=== PATIENT | male | born 1990 | race Caucasian/White ===

== ENCOUNTER 2024-11-11 23:47 | Inpatient (IN) | payer OTHER, SELFPAY ==
[2024-11-11 14:41] VITALS: BP 134/79
--- NOTE | 2024-11-11 14:41 | ED.GENMED ---
ED Provider Triage
-
Patient seen by provider in Triage?: Seen in Triage
34-year-old male, history of asthma, usually gets bronchitis yearly, presents for cough for past 3 weeks, had a sinus infection and bronchitis, took a Z-Adam last dose was 5 days ago., Has been on steroid taper since 3 days ago. Has been using 3
times daily a steroid inhaler and an albuterol inhaler and nothing seems to be helping his cough. Taking Tessalon Perles with brief episodes of relief. Denies fever.
History of Present Illness
General
Chief Complaint: Breathing Problem
Time Seen by Provider: 11/11/24 17:07
History of Present Illness
History of Present Illness:
..
Phy Exam
Physical Exam
Physical Exam:
..
Course
Orders/Labs/Results
Orders:
Orders
11/11/24 14:43
CR Chest - 2 Views Urgent
Comment:
Reason For Exam: persistent cough
11/11/24 14:46
Ipratropium/Albuterol Sulfate [Duoneb] 3 ml INH R NOW STA
11/11/24 16:57
Ipratropium/Albuterol Sulfate [Duoneb] 3 ml .ROUTE .STK-MED ONE
11/11/24 17:22
Albuterol Sulfate [Ventolin Nebules] 7.5 mg INH R NOW STA
Ipratropium Nebs [Atrovent Nebules] 1 mg INH R NOW STA
11/11/24 17:23
Dexamethasone Pf [Decadron] 10 mg PO NOW STA
11/11/24 19:23
IV Insert/Care/Rem.- Treatment PRN
11/11/24 19:24
Electrocardiogram (*1) Stat
Reason for Study: Other
Other Reason for Exam: chest pain
CT Chest PE Study Urgent
Comment:
Reason For Exam: sob
Cardiac Monitoring- Treatment ONCE
EKG- Treatment ONCE
11/11/24 19:35
Complete Blood Count/With Diff Urgent
Comprehensive Metabolic Panel Urgent
Ketorolac [Toradol] 15 mg IV NOW STA
11/11/24 22:04
COVID-19 Antigen Urgent
Source: Nasal Swab
Influenza A+B Rapid Molecular Urgent
RACHELLE Source: Nasal Swab
Specimen Description:
11/11/24 22:50
Ipratropium/Albuterol Sulfate [Duoneb] 3 ml INH R NOW STA
11/11/24 23:14
Admit/Transfer Patient As Directed
Co-Sign Provider:
Level of Care: Inpatient admission
Assign to:: Medical/Surgical
Physician / Group: shahab
Diagnosis: asthma exacerbation/influenza
Reason for Hospitalization: asthma exacerbation/influenza
Expected length of stay greater than two midnights?: Yes
ELOS- Estimated Length of Stay in days: 2
I certify the patient meets the requirements for IP care: Yes
PRN Pain Medication Management As Directed
May give lesser potent ordered pain med per pt: Yes
preference::
Protocol:: Medication orders for pain may be administered in a
manner that supports deferring to patient preference
when the pt is:
- Requesting an ordered lesser potent pain medication.
Least to most potent pain medications are defined
as: acetaminophen < NSAID < tramadol < opioids
(morphine, oxycodone, hydromorphone).
- Requesting a lesser dose of the same medication IF
ORDERED.
- Requesting a less intrusive route of administration
if both routes are prescribed by the provider (PO <
IV).
11/11/24 23:15
Code Status As Directed
Resuscitation Status: Full Code
11/12/24 00:55
Acetaminophen [Tylenol] 650 mg PO Q4HPRN PRN
Benzonatate [Tessalon Perles] 100 mg PO TIDPRN PRN
promethazine-DM 5 ml PO Q6HPRN PRN
11/12/24 00:55
Activity As Directed
Activity Level: As Tolerated
Vital Signs As Directed
Frequency: Per unit guidelines
DX Deep Vein Thrombosis Video Routine
11/12/24 02:00
Dexamethasone Sod Phosphate [Decadron] 4 mg IV Q12H
11/12/24 05:28
Complete Blood Count/With Diff IN AM
Comprehensive Metabolic Panel IN AM
11/12/24 08:00
Budesonide/Formoterol 80/4.5 [Symbicort 80/4.5 Mcg Inhaler] 2 puff INH R BID
Escitalopram Oxalate [Lexapro] 10 mg PO DAILY
Heparin 5,000 units SC Q12
Ipratropium/Albuterol Sulfate [Duoneb] 3 ml INH R QID
Pantoprazole [Protonix] 40 mg PO DAILY
11/12/24 Dinner
Regular
At Your Request: Full Participation
11/12/24 22:00
Famotidine [Pepcid] 20 mg PO HS
Abnormal Lab Results
11/11/24
19:35
WBC 17.0 H 10^3/uL
(4.8-10.8)
Abs Immat Gran (auto) 0.1 H 10^3/uL
(0-0.05)
Absolute Neuts (auto) 15.9 H 10^3/uL
(1.4-6.5)
Absolute Lymphs (auto) 0.4 L 10^3/uL
(1.2-3.4)
Neutrophils % 93.2 H %
(42.2-75.2)
Lymphocytes % 2.6 L %
(20.5-51.1)
Carbon Dioxide 19 L mmol/L
(22-30)
Glucose 159 H mg/dl
(70-99)
11/11/24 19:35
11/11/24 19:35
Vital Signs
Initial and Last Documented VS:
Initial Vital Signs
Temp Pulse Resp BP Pulse Ox
98 F 111 20 134/79 99
11/11/24 14:41 11/11/24 14:41 11/11/24 14:41 11/11/24 14:41 11/11/24 14:41
Last Documented Vital Signs
Temp Pulse Resp BP Pulse Ox
98 F 92 18 154/99 96
11/14/24 15:46 11/14/24 15:46 11/14/24 15:46 11/14/24 15:46 11/14/24 16:03
*Critical Care Note
Total Time (30-74mins, 75-104mins- exclusive of procedures): Not Applicable
ED Attending Note
-
Portions of this chart may have been created with voice recognition software.� Occasional wrong word or��sound alike� substitutions may have occurred due to the inherent limitations of voice recognition software.
Discharge Plan
Departure
Patient Disposition: Admit
Date of Disposition: 11/11/24
Time of Disposition: 22:58
Admit to: Med/Surg
Admit to doctor: hospitalist
Presentation/result/management discussed w/ accepting MD/DO: Hospitalist
Patient with high blood pressure during this ER visit?: Yes
Condition: Fair
Covid-19: Not Applicable
Discharge Problem:
Asthma exacerbation, Influenza A, Acute dyspnea
Interventions
Interventions:
*Risk Screen - Suicide Last Done: 11/11/24 17:21
*General Assessment Last Done: 11/11/24 17:21
*Neglect/Abuse Screening Last Done: 11/11/24 17:21
ED- Fall Risk Assessment Last Done: 11/11/24 17:21
*ED COVID-19 Vaccine History Last Done: 11/11/24 17:21
*Nursing Disposition Last Done: 11/12/24 19:28
ED- Cardiac Assessment Last Done: 11/11/24 17:33
ED- Pulmonary Assessment Last Done: 11/11/24 18:57
Discharge Date and Time
Discharge Date/Time: 11/12/24 19:29
[2024-11-11] MEDS: DUONEB 3 ML INH ×2 (17:00→22:59)
--- NOTE | 2024-11-11 17:20 | EDRN ---
Juan Peters NP in room w/ pt.
--- NOTE | 2024-11-11 17:24 | EDRN ---
Pt w/ hx of asthma and 2 weeks of off and on SOB. Worse last three days, SOB and coughing. On steriods past 2 days.
--- NOTE | 2024-11-11 17:24 | ED.GENMED ---
History of Present Illness
<SHAY Good - Last Filed: 11/11/24 23:00>
General
Chief Complaint: Breathing Problem
Source: patient
Exam Limitations: none
Time Seen by Provider: 11/11/24 17:07
Nursing documentation reviewed up to this point in time: agreed with
History of Present Illness
History of Present Illness:
Patient is a 34-year-old male with past medical history of asthma presents for persistent cough for the past several weeks. Patient was on antibiotics and is on steroids. Patient is also on Tessalon he took 20 mg of regular prednisone and 12 mg of
methylprednisone today. He has been using his inhalers and Symbicort. He complains of persistent cough.
Review of Systems
<SHAY Good - Last Filed: 11/11/24 23:00>
Review of Systems
Allergies reviewed?: Yes
All Other Systems: ROS reviewed and negative except as documented in HPI and ROS
Constitutional: Denies fever
Respiratory: Reports cough
ABD/GI: Reports no symptoms
: Reports no symptoms
Musculoskeletal: Reports no symptoms
Skin: Reports no symptoms
Neurological: Reports no symptoms
Psychiatric: Reports no symptoms
Phy Exam
<SHAY Good - Last Filed: 11/11/24 23:00>
General Physical Exam
General Presentation: no apparent distress
General age: appears stated age
General Skin: warm and dry
General Habitus: normal
General Mental: alert
General Hydration: appears well hydrated
Cardiovascular Exam
Cardiovascular Exam: no murmur, normal peripheral pulses and tachycardia
Pulmonary Exam
Pulmonary Exam: no respiratory distress and other (+ persistent cough + exp wheezing , tachypneic)
Neurological Exam
Neurological Exam: alert and oriented x3
Musculoskeletal Exam
Musculoskeletal Exam: full ROM
Skin Exam
Skin Exam: normal color and warm/dry
Psychiatric Exam
Psychiatric Exam: normal mood/affect
Course
<SHAY Good - Last Filed: 11/11/24 23:00>
Orders/Labs/Results
Orders:
Orders
11/11/24 14:43
CR Chest - 2 Views Urgent
Comment:
Reason For Exam: persistent cough
11/11/24 14:46
Ipratropium/Albuterol Sulfate [Duoneb] 3 ml INH R NOW STA
11/11/24 16:57
Ipratropium/Albuterol Sulfate [Duoneb] 3 ml .ROUTE .STK-MED ONE
11/11/24 17:22
Albuterol Sulfate [Ventolin Nebules] 7.5 mg INH R NOW STA
Ipratropium Nebs [Atrovent Nebules] 1 mg INH R NOW STA
11/11/24 17:23
Dexamethasone Pf [Decadron] 10 mg PO NOW STA
11/11/24 19:23
IV Insert/Care/Rem.- Treatment PRN
11/11/24 19:24
Electrocardiogram (*1) Stat
Reason for Study: Other
Other Reason for Exam: chest pain
CT Chest PE Study Urgent
Comment:
Reason For Exam: sob
Cardiac Monitoring- Treatment ONCE
EKG- Treatment ONCE
11/11/24 19:35
Complete Blood Count/With Diff Urgent
Comprehensive Metabolic Panel Urgent
Ketorolac [Toradol] 15 mg IV NOW STA
11/11/24 22:04
COVID-19 Antigen Urgent
Source: Nasal Swab
Influenza A+B Rapid Molecular Urgent
RACHELLE Source: Nasal Swab
Specimen Description:
11/11/24 22:50
Ipratropium/Albuterol Sulfate [Duoneb] 3 ml INH R NOW STA
Abnormal Lab Results
11/11/24
19:35
WBC 17.0 H 10^3/uL
(4.8-10.8)
Abs Immat Gran (auto) 0.1 H 10^3/uL
(0-0.05)
Absolute Neuts (auto) 15.9 H 10^3/uL
(1.4-6.5)
Absolute Lymphs (auto) 0.4 L 10^3/uL
(1.2-3.4)
Neutrophils % 93.2 H %
(42.2-75.2)
Lymphocytes % 2.6 L %
(20.5-51.1)
Carbon Dioxide 19 L mmol/L
(22-30)
Glucose 159 H mg/dl
(70-99)
11/11/24 19:35
11/11/24 19:35
Vital Signs
Initial and Last Documented VS:
Initial Vital Signs
Temp Pulse Resp BP Pulse Ox
98 F 111 20 134/79 99
11/11/24 14:41 11/11/24 14:41 11/11/24 14:41 11/11/24 14:41 11/11/24 14:41
Last Documented Vital Signs
Temp Pulse Resp BP Pulse Ox
98 F 96 20 135/93 97
11/11/24 14:41 11/11/24 22:42 11/11/24 22:42 11/11/24 21:17 11/11/24 22:42
District Plant Supervisor consulted with Physician
District Plant Supervisor consulted with physician?: Yes
Name of Physician Consulted: Trey
<Sara Yang MD - Last Filed: 11/11/24 17:40>
Orders/Labs/Results
Orders:
Orders
11/11/24 14:43
CR Chest - 2 Views Urgent
Comment:
Reason For Exam: persistent cough
11/11/24 14:46
Ipratropium/Albuterol Sulfate [Duoneb] 3 ml INH R NOW STA
11/11/24 16:57
Ipratropium/Albuterol Sulfate [Duoneb] 3 ml .ROUTE .STK-MED ONE
11/11/24 17:22
Albuterol Sulfate [Ventolin Nebules] 7.5 mg INH R NOW STA
Ipratropium Nebs [Atrovent Nebules] 1 mg INH R NOW STA
11/11/24 17:23
Dexamethasone Pf [Decadron] 10 mg PO NOW STA
11/11/24 19:23
IV Insert/Care/Rem.- Treatment PRN
11/11/24 19:24
Electrocardiogram (*1) Stat
Reason for Study: Other
Other Reason for Exam: chest pain
CT Chest PE Study Urgent
Comment:
Reason For Exam: sob
Cardiac Monitoring- Treatment ONCE
EKG- Treatment ONCE
11/11/24 19:35
Complete Blood Count/With Diff Urgent
Comprehensive Metabolic Panel Urgent
Ketorolac [Toradol] 15 mg IV NOW STA
11/11/24 22:04
COVID-19 Antigen Urgent
Source: Nasal Swab
Influenza A+B Rapid Molecular Urgent
RACHELLE Source: Nasal Swab
Specimen Description:
11/11/24 22:50
Ipratropium/Albuterol Sulfate [Duoneb] 3 ml INH R NOW STA
Abnormal Lab Results
11/11/24
19:35
WBC 17.0 H 10^3/uL
(4.8-10.8)
Abs Immat Gran (auto) 0.1 H 10^3/uL
(0-0.05)
Absolute Neuts (auto) 15.9 H 10^3/uL
(1.4-6.5)
Absolute Lymphs (auto) 0.4 L 10^3/uL
(1.2-3.4)
Neutrophils % 93.2 H %
(42.2-75.2)
Lymphocytes % 2.6 L %
(20.5-51.1)
Carbon Dioxide 19 L mmol/L
(22-30)
Glucose 159 H mg/dl
(70-99)
11/11/24 19:35
11/11/24 19:35
Vital Signs
Initial and Last Documented VS:
Initial Vital Signs
Temp Pulse Resp BP Pulse Ox
98 F 111 20 134/79 99
11/11/24 14:41 11/11/24 14:41 11/11/24 14:41 11/11/24 14:41 11/11/24 14:41
Last Documented Vital Signs
Temp Pulse Resp BP Pulse Ox
98 F 96 20 135/93 97
11/11/24 14:41 11/11/24 22:42 11/11/24 22:42 11/11/24 21:17 11/11/24 22:42
<SHAY Good - Last Filed: 11/11/24 23:00>
MDM/Problems Addressed
Differential Diagnosis Includes:
not limited to:asthma exacerbation, pneumonia, PE, bronchitis, flu, COVID
MDM/Problems Addressed:
As documented patient is a 34-year-old male with cough induced exercise-induced asthma who presents with continued cough and shortness of breath. Patient completed antibiotics and has been on steroids however no relief. Patient presents with
frequent cough very mild wheezing. Patient was given initial neb and then after my evaluation was given an hour-long neb and oral Decadron. Patient continues with coughing fits feels very short of breath he has tachycardic however nonhypoxic.
Patient was evaluated ED physician, will check ct scan /labs .
Labs reviewed patient's white count is elevated 17,000 however he has been on steroid. CAT scan negative for PE no obvious pneumonia. FLU positive
Patient reexamined several times and still complains of feeling short of breath and has conversational dyspnea. Patient has been here and has had several treatments and Decadron however persistently short of breath pulse ox is stable however.
Patient will require [id number] nebs steroids and close monitoring. Will admit patient to the hospital service.
<SHAY Good - Last Filed: 11/11/24 23:00>
*Radiology
Radiology exam reviewed: radiology read reviewed
*Pulse Oximetry
Patient hypoxic: no
*EKG
Interpreted by ED Provider?: Yes
Comparison EKG: no changes
Heart Rate: 113
*Critical Care Note
Total Time (30-74mins, 75-104mins- exclusive of procedures): Not Applicable
ED Attending Note
<SHAY Good - Last Filed: 11/11/24 23:00>
-
Portions of this chart may have been created with voice recognition software.� Occasional wrong word or��sound alike� substitutions may have occurred due to the inherent limitations of voice recognition software.
<Sara Yang MD - Last Filed: 11/11/24 17:40>
ED Attending Note
Patient seen and examined by attending physician: Yes
I performed the substantive portion of visit, reviewed & personally made and approve the management plan that is documented in note by myself or JULIANA.: Yes
ED Attending Note:
34-year-old male with a history of asthma which he says manifested as both wheezing and coughing, recently treated for sinusitis, then bronchitis, returns with recurrent cough that is nonproductive. He is tapering down on steroids, and using his
inhaler. On exam, patient is awake alert comfortable without respiratory distress. I suspect his tachycardia, mild, is related to his recent inhaler use. No identifiable PE risk factors noted. On exam, no retractions, speaks in full sentences
easily. He has diffuse wheezing with obvious cough. Doubt pneumonia, doubt PE particularly without leg swelling, etc. etc. and history. Symptoms very consistent with patient's prior episodes of asthma. Will give hour-long neb treatment here,
longer taper of steroids, close follow-up.
Discharge Plan
Departure
Patient Disposition: Admit
Date of Disposition: 11/11/24
Time of Disposition: 22:58
Admit to: Med/Surg
Admit to doctor: hospitalist
Presentation/result/management discussed w/ accepting MD/DO: Hospitalist
Patient with high blood pressure during this ER visit?: Yes
Condition: Fair
Covid-19: Not Applicable
Discharge Problem:
Asthma exacerbation, Influenza A, Acute dyspnea
Prescriptions:
No Action
Leelee
1 tab PO TID
propranolol 10 mg Tablet
10 mg PO PRN PRN (Reason: htn rel to anxiety )
famotidine 20 mg Tablet
20 mg PO HS
omeprazole [Prilosec] 20 mg Capsule,Delayed Release(Dr/Ec)
20 mg PO DAILY
escitalopram oxalate 10 mg Tablet
10 mg PO DAILY
Referrals:
Juan Daniel Douglas IV, MD [Family Provider] -
Interventions
Interventions:
*Risk Screen - Suicide Last Done: 11/11/24 17:21
*General Assessment Last Done: 11/11/24 17:21
*Neglect/Abuse Screening Last Done: 11/11/24 17:21
ED- Fall Risk Assessment Last Done: 11/11/24 17:21
*ED COVID-19 Vaccine History Last Done: 11/11/24 17:21
ED- Cardiac Assessment Last Done: 11/11/24 17:33
ED- Pulmonary Assessment Last Done: 11/11/24 18:57
Discharge Date and Time
Print Language: GREENLANDIC
[2024-11-11 17:32] VITALS: BP 166/82
[2024-11-11] MEDS: VENTOLIN NEBULES 7.5 MG INH (17:34)
[2024-11-11] MEDS: ATROVENT NEBULES 1 MG INH (17:34)
[2024-11-11] MEDS: DECADRON 10 MG PO (17:34)
[2024-11-11 17:40] VITALS: BMI 34.9
--- NOTE | 2024-11-11 18:28 | EDRN ---
Pt states he is feeling more relaxed and breathing more easily w/ coughing greatly decreased. 1 hour neb continuing. Pt states he is still feeling tight though.
[2024-11-11 19:22] VITALS: BP 162/88
[2024-11-11 19:46] LABS: % Basophils 0.2 % (0-2); % Immature Granulocytes 0.5 % (0-0.5); % Lymphocytes 2.6 % (20.5-51.1); % Monocytes 3.5 % (1.7-9.3); % Neutrophils 93.2 % (42.2-75.2); Absolute Immature Granulocytes 0.1 10^3/uL (0-0.05); Absolute Lymphocytes 0.4 10^3/uL (1.2-3.4); Absolute Monocytes 0.6 10^3/uL (0.1-0.6); Absolute Neutrophils 15.9 10^3/uL (1.4-6.5); Hematocrit 42.1 % (39.0-52.0); Hemoglobin 14.7 g/dL (13.0-18.0); Mean Corp Hgb Conc. 34.9 g/dL (33.0-37.0); Mean Corpuscular Hgb 30.4 pg (27.0-31.0); Mean Platelet Volume 9.9 fL (7.4-10.4); Nucleated Red Blood Cells % 0 % (-); Platelet Count 240 10^3/uL (130-400); Red Blood Cell Count 4.84 10^6/uL (4.70-6.10); Red Cell Dist. Width 12.7 % (11.5-14.5)
[2024-11-11] MEDS: TORADOL 15 MG IV (19:54)
[2024-11-11 20:09] LABS: AST (SGOT) 35 U/L (17-59); Albumin 4.8 g/dl (3.5-5.0); Alkaline Phosphatase 108 U/L (38-126); Blood Urea Nitrogen 11 mg/dl (9-20); Calcium 9.4 mg/dl (8.4-10.2); Carbon Dioxide 19 mmol/L (22-30); Chloride 101 mmol/L (98-107); Estimated Creatinine Clearance > 125 ml/min; Glucose 159 mg/dl (70-99); Potassium 3.7 mmol/L (3.5-5.1); Sodium 136 mmol/L (135-145); Total Bilirubin 0.6 mg/dl (0.2-1.3); Total Protein 7.4 g/dl (6.3-8.2); eGFR > 60.00
[2024-11-11 20:18] LABS: ALT (SGPT) 31 U/L (0-50)
[2024-11-11 21:17] VITALS: BP 135/93
--- NOTE | 2024-11-11 22:09 | EDRN ---
ambulatory pulse ox 96%
[2024-11-11 22:33] LABS: COVID-19 Antigen Negative (Negative)
--- NOTE | 2024-11-11 23:18 | HPS.HSE ---
Family Physician
-
Family Physician: Juan Daniel Douglas IV, MD
Chief Complaint
-
cough
History of Present Illness
34-year-old male past medical history of exercise-induced asthma, hypertension, angioedema, anxiety/depression presenting with persisting productive cough for the past 2 weeks. He was having bodyaches, shortness of breath, and sore throat. No
fevers or chills. No nausea vomiting or diarrhea. No chest pain.
He saw his primary care physician and completed course of antibiotics last week. He is on day 2 of oral steroids.
He does vape a few times a month. He drinks alcohol occasionally.
Medical History
Past Medical History
Past Medical History: Reports Other (exercise-induced asthma, hypertension, angioedema, anxiety/depression)
Past Surgical History: Reports Other (wisdom teeth )
Social History
Tobacco: Vaping
Alcohol: None
Drug: None
Family History
Family History: Not pertinent
Allergies / Home Medications
Allergies reflects when Allergies were last updated in [facility].
Home Medications with original date entered in [facility]
Allergy/Medication List:
Allergies
Allergy/AdvReac Type Severity Reaction Status Date / Time
No Known Allergies Allergy Unverified 11/16/23 08:08
Home Medications
escitalopram oxalate 10 mg tablet 10 mg PO DAILY 11/16/23
famotidine 20 mg tablet 20 mg PO HS 11/16/23
fexofenadine 180 mg tablet 180 mg PO NOON 11/16/23
propranolol 10 mg tablet 10 mg PO DAILYPRN PRN htn rel to anxiety 11/16/23
albuterol sulfate 90 mcg/actuation aerosol inhaler 2 puff inhalation R Q4HPRN PRN sob 11/11/24
benzonatate 100 mg capsule 100 mg PO TIDPRN PRN cough 11/11/24
budesonide-formoterol HFA 80 mcg-4.5 mcg/actuation aerosol inhaler (Symbicort) 2 puff inhalation R BID 11/11/24
methylprednisolone 4 mg tablets in a dose pack 0 mg PO PER PKG DIR 11/11/24
pantoprazole 40 mg tablet,delayed release 40 mg PO DAILY 11/11/24
promethazine-DM 6.25 mg-15 mg/5 mL oral syrup 5 ml PO Q6HPRN PRN cough 11/11/24
Review of Systems
-
History Source: Patient
A 12 point ROS was completed and negative except as noted: Yes
Constitutional: Reports No Symptoms
EENT: Reports No Symptoms
Respiratory: Reports See HPI
Cardiac: Reports No Symptoms
Abdomen/GI: Reports No Symptoms
: Reports No Symptoms
Musculoskeletal: Reports No Symptoms
Skin: Reports No Symptoms
Neurological: Reports No Symptoms
Endocrine: Reports No Symptoms
Hematologic/Lymphatic: Reports No Symptoms
Psych: Reports No Symptoms
Physical Exam
Vital Signs
Vital Signs
Temp Pulse Resp BP Pulse Ox
98 F 96 20 135/93 97
11/11/24 14:41 11/11/24 22:42 11/11/24 22:42 11/11/24 21:17 11/11/24 22:42
Physical Exam
General: Well Developed, Well Nourished and No Apparent Distress
HEENT: NormoCephalic, Moist mucous membranes and Atraumatic
Respiratory: Wheezes
Cardiac: S1/S2 and Regular Rhythm; No Murmur or Rub
GI: Soft, Non Tender, Non Distended and Normal Bowel Sounds; No Organomegaly
Rectal: Deferred by Provider
Musculoskeletal: No Clubbing, No Cyanosis and No Edema
Skin: No Rash
Neuro: Nonfocal/grossly intact
Laboratory Results
-
11/11/24 19:35
11/11/24 19:35
Laboratory Results
Total Bilirubin 0.6 mg/dl (0.2-1.3) 11/11/24 19:35
AST 35 U/L (17-59) 11/11/24 19:35
ALT 31 U/L (0-50) 11/11/24 19:35
Alkaline Phosphatase 108 U/L (38-126) 11/11/24 19:35
Data Reviewed
-
Lab Data: Labs Reviewed by me
Old Records: Reviewed
Impression/Plan
-
IMPRESSION:
PLAN:
# Acute bronchitis/influenza infection
# History of exercise-induced asthma
-Influenza A positive
-CT PE shows no pulmonary embolism
-DuoNebs every 6 hours
-Dexamethasone 4 mg every 12
-Out of window for Tamiflu
-Tessalon Perles
-Continue Symbicort
History of angioedema
-Continue famotidine
Essential hypertension
GERD
-Continue famotidine
-Continue Protonix
Anxiety/depression
Occasional vaper
Full code
DVT prophylaxis-heparin
Regular diet
[2024-11-11 23:47] VITALS: BMI 34.9
[2024-11-12] VITALS (11 sets, daily range): BP systolic 118–160; BP diastolic 74–98; BMI 33.1
[2024-11-12] MEDS: DECADRON 4 MG IV (01:23)
[2024-11-12] MEDS: TESSALON PERLES 100 MG PO ×2 (01:23→07:56)
[2024-11-12 05:47] LABS: % Basophils 0.1 % (0-2); % Immature Granulocytes 0.4 % (0-0.5); % Lymphocytes 3.1 % (20.5-51.1); % Monocytes 3.8 % (1.7-9.3); % Neutrophils 92.6 % (42.2-75.2); Absolute Immature Granulocytes 0.1 10^3/uL (0-0.05); Absolute Lymphocytes 0.5 10^3/uL (1.2-3.4); Absolute Monocytes 0.6 10^3/uL (0.1-0.6); Absolute Neutrophils 14.4 10^3/uL (1.4-6.5); Hematocrit 41.6 % (39.0-52.0); Hemoglobin 14.2 g/dL (13.0-18.0); Mean Corp Hgb Conc. 34.1 g/dL (33.0-37.0); Mean Corpuscular Hgb 30.3 pg (27.0-31.0); Mean Corpuscular Volume 88.9 fL (80.0-94.0); Nucleated Red Blood Cells % 0 % (-); Platelet Count 242 10^3/uL (130-400); Red Blood Cell Count 4.68 10^6/uL (4.70-6.10); White Blood Cell Count 15.5 10^3/uL (4.8-10.8)
[2024-11-12 06:09] LABS: ALT (SGPT) 21 U/L (0-50); AST (SGOT) 25 U/L (17-59); Albumin 4.4 g/dl (3.5-5.0); Alkaline Phosphatase 106 U/L (38-126); Blood Urea Nitrogen 11 mg/dl (9-20); Calcium 9.4 mg/dl (8.4-10.2); Carbon Dioxide 23 mmol/L (22-30); Chloride 102 mmol/L (98-107); Estimated Creatinine Clearance > 125 ml/min; Glucose 124 mg/dl (70-99); Potassium 4.2 mmol/L (3.5-5.1); Sodium 137 mmol/L (135-145); Total Bilirubin 0.5 mg/dl (0.2-1.3); Total Protein 6.8 g/dl (6.3-8.2); eGFR > 60.00
[2024-11-12] MEDS: HEPARIN 5000 UNITS SC ×2 (07:56→20:13)
[2024-11-12] MEDS: PROTONIX 40 MG PO (07:56)
[2024-11-12] MEDS: LEXAPRO 10 MG PO (07:56)
[2024-11-12] MEDS: TYLENOL 650 MG PO ×3 (07:56→22:45)
[2024-11-12] MEDS: SOLU-MEDROL PF 40 MG IV ×2 (07:58→17:55)
[2024-11-12] MEDS: DUONEB 3 ML INH ×4 (08:24→19:51)
[2024-11-12] MEDS: SYMBICORT 80/4.5 MCG INHALER 2 PUFF INH ×2 (08:24→19:51)
--- NOTE | 2024-11-12 09:21 | W.PN.HOSP.TC ---
Today's Communication/Plan
-
Continue with IV steroid
Start Tamiflu
Follow-up with pulmonary recommendation
Assessment / Plan
Assessment / Plan
Physical Exam
General: Well Developed, Well Nourished and No Apparent Distress
HEENT: NormoCephalic, Moist mucous membranes and Atraumatic
Respiratory: Wheezes
Cardiac: S1/S2 and Regular Rhythm; No Murmur or Rub
GI: Soft, Non Tender, Non Distended and Normal Bowel Sounds; No Organomegaly
Rectal: Deferred by Provider
Musculoskeletal: No Clubbing, No Cyanosis and No Edema
Skin: No Rash
Neuro: Nonfocal/grossly intact
# Acute bronchitis/influenza infection
# History of exercise-induced asthma
-Influenza A positive despite vaccinated
-CT PE shows no pulmonary embolism
-DuoNebs every 6 hours
-Methylprednisolone 40 mg twice daily
-Initial thought it was Out of window for Tamiflu, patient recalled his close symptoms started 2 days ago. Will start Tamiflu 75 mg twice daily
-Tessalon Perles
-Continue Symbicort
-Consult pulmonary, appreciate help
# Leukocytosis, no fever, suspect will persist due to steroid therapy
History of angioedema
-Continue famotidine
Essential hypertension
GERD
-Continue famotidine
-Continue Protonix
Anxiety/depression
Occasional vaper
Full code
DVT prophylaxis-heparin
Regular diet
Total time spent to see the patient, examine the patient, review data and lab results, discuss treatment plan with patient and nursing staff around 55 minutes
Anticipated Discharge: > 48 hours
Subjective/Interval History
-
Date of Service: November 12, 2024
Still cough with sob
Objective Data
-
Labs:
Laboratory Results
11/12/24
05:28
WBC 15.5 H
Hgb 14.2
Hct 41.6
Plt Count 242
Sodium 137
Potassium 4.2
Chloride 102
Carbon Dioxide 23
BUN 11
Creatinine 0.9
Glucose 124 H
Calcium 9.4
Total Bilirubin 0.5
AST 25
ALT 21
Alkaline Phosphatase 106
Vital Signs:
Vital Signs
Temp Pulse Resp BP Pulse Ox
97.9 F 116 18 160/91 96
11/12/24 08:00 11/12/24 02:31 11/12/24 08:15 11/12/24 08:11 11/12/24 08:15
I&O
11/11/24 11/12/24 11/13/24
06:59 06:59 06:59
Intake Total 240 / 240
Balance 240 / 240
--- NOTE | 2024-11-12 09:31 | CON.PUL ---
Consultation
Consultation Request
Date/Time Consultation Requested: 11/12/2024641
Date/Time Consultation Performed: 11/12/2024907
Requesting Provider: Dr. Rojas
Performing Provider: Dr. Melchor
Reason for Consultation: Cough/Asthma
Medical History
-
Chief Complaint: Cough + SOB
History of Present Illness:
34-year-old male who occasionally vapes with past medical history of asthma, hypertension, history of angioedema and anxiety/depression who presents with cough for 3 weeks. Patient previously on antibiotics and steroids and also on Symbicort at
home with as needed albuterol. He has been experiencing shortness of breath despite using the inhaler. Cough has been productive for the past 2 weeks. He was having bodyaches, shortness of breath and sore throat. No nausea, vomiting or diarrhea
or chest pain. He was on day 2 of his oral steroids when he presented to the ER. He vapes a few times a month and drinks alcohol socially. Initial vitals in the ER showed he was afebrile to 90 �F, pulse rate 111, breathing at 20 breaths/min, BP
134/79 and saturating 99% on room air. Initial labs showed leukocytosis to 17, Hb 14.7, serum bicarbonate level 19, and COVID antigen negative. Flu swab was positive for influenza A. CXR showed no evidence of pneumonia or acute cardiopulmonary
process, and CTA chest showed no central PE with no evidence of pneumonia, pleural effusion or lymphadenopathy. In the ER he was given Decadron 10 mg, DuoNebs, albuterol, ipratropium and Toradol. He was admitted to med/surg for further treatment
and now pulmonary consulted for additional management/recommendations.
Patient seen and evaluated today at bedside. Still having coughing fits especially with activity. Currently saturating 95% on room air, with BP 160/91. He says that about 4 weeks ago he had a cold, then on 10/31/2024 developed a sinus infection,
and then about a week later developed bronchitis. He is starting to feel better although cough is now becoming more productive with rivero-colored mucus coming up. Currently denies fevers or chills. This is the fourth year in a row that he developed
the flu, where he usually gets it around Cy or in October. He has asthmatic symptoms typically in the Winter or Spring, and may wheeze at times during the year with exercise. He takes his Symbicort when he has asthmatic symptoms and takes
albuterol when he wheezes. Never been intubated before for asthma. 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
PMHx: Exercise-induced asthma, hypertension, history of angioedema, anxiety/depression
PHSx: [place] teeth
Past Medical History
Past Medical History: Other (Above as per HPI)
Past Surgical History: Other (Above as per HPI)
Social History
Tobacco: Vaping
Alcohol: Occasional (Social)
Drug: None
Family History
Family History: Reviewed & Not Pertinent
Allergies / Home Medications
Allergies
Allergy/AdvReac Type Severity Reaction Status Date / Time
No Known Allergies Allergy Unverified 11/16/23 08:08
Home Medications
�Medication �Instructions �Recorded �Confirmed �Last Taken �Type
escitalopram oxalate 10 mg tablet 10 mg PO DAILY 11/16/23 11/11/24 11/15/23 History
famotidine 20 mg tablet 20 mg PO HS 11/16/23 11/11/24 11/15/23 History
fexofenadine 180 mg tablet 180 mg PO NOON 11/16/23 11/11/24 11/15/23 History
propranolol 10 mg tablet 10 mg PO DAILYPRN PRN htn rel to 11/16/23 11/11/24 11/15/23 History
anxiety
albuterol sulfate 90 mcg/actuation 2 puff inhalation R Q4HPRN PRN sob 11/11/24 11/11/24 Unknown History
aerosol inhaler
benzonatate 100 mg capsule 100 mg PO TIDPRN PRN cough 11/11/24 11/11/24 Unknown History
budesonide-formoterol HFA 80 2 puff inhalation R BID 11/11/24 11/11/24 Unknown History
mcg-4.5 mcg/actuation aerosol
inhaler (Symbicort)
methylprednisolone 4 mg tablets in 0 mg PO PER PKG DIR 11/11/24 11/11/24 Unknown History
a dose pack
pantoprazole 40 mg tablet,delayed 40 mg PO DAILY 11/11/24 11/11/24 Unknown History
release
promethazine-DM 6.25 mg-15 mg/5 mL 5 ml PO Q6HPRN PRN cough 11/11/24 11/11/24 Unknown History
oral syrup
Review of Systems
-
History Source: Patient
All other systems: Negative unless noted
Vitals / Labs / Diagnostic Testing
Vital Signs
Temp Pulse Resp BP Pulse Ox
97.9 F 116 18 160/91 96
11/12/24 08:00 11/12/24 02:31 11/12/24 08:15 11/12/24 08:11 11/12/24 08:15
Lab Data
11/12/24 05:28
11/12/24 05:28
Microbiology
11/11/24 22:04 Nasal Swab Influenza Types A & B (YAZMIN) - Final
Influenza A Positive, NAAT
Diagnostic Testing:
Physical Exam
-
HEENT: Normocephalic and Anicteric
Cardiovascular: S1/S2, Murmur (negative), Peripheral Edema (negative) and Other (Tachycardic)
Respiratory: Wheeze (negative), Rales (negative), Rhonchi (negative) and Non-Labored Respirations
GI: Soft, Non Distended, Non Tender and Normal Bowel Sounds
Neurology: AO x 3 and Tremors (negative)
Skin: Warm and Dry
General: Respiratory Distress (negative), Comfortable, Fever (negative) and Chills (negative)
Assessment
-
Assessment: 34-year-old male who occasionally vapes with past medical history of asthma, hypertension, history of angioedema and anxiety/depression who presents with cough for 3 weeks. Patient previously on antibiotics and steroids and also on
Symbicort at home with as needed albuterol. He has been experiencing shortness of breath despite using the inhaler. Cough has been productive for the past 2 weeks. He was having bodyaches, shortness of breath and sore throat. No nausea, vomiting
or diarrhea or chest pain. He was on day 2 of his oral steroids when he presented to the ER. He vapes a few times a month and drinks alcohol socially. Initial vitals in the ER showed he was afebrile to 90 �F, pulse rate 111, breathing at 20
breaths/min, BP 134/79 and saturating 99% on room air. Initial labs showed leukocytosis to 17, Hb 14.7, serum bicarbonate level 19, and COVID antigen negative. Flu swab was positive for influenza A. CXR showed no evidence of pneumonia or acute
cardiopulmonary process, and CTA chest showed no central PE with no evidence of pneumonia, pleural effusion or lymphadenopathy. In the ER he was given Decadron 10 mg, DuoNebs, albuterol, ipratropium and Toradol. He was admitted to med/surg for
further treatment and now pulmonary consulted for additional management/recommendations.
Chronic conditions [employer]PR[employer]IS[employer]: Exercise-induced asthma, hypertension, history of angioedema, anxiety/depression
Impression:
#Acute asthmatic exacerbation in the setting of flu positive with acute cough
#Influenza A positive
#Acute bronchitis due to above
#Leukocytosis that is likely steroid-induced
#History of mild intermittent asthma that is exercise-induced
#History of angioedema
#History of hypertension
#History of GERD
#History of anxiety/depression
#History of occasional vape use
Plan:
- Patient is improving while on DuoNebs, Solu-Medrol and Symbicort, although still with coughing spells during activity that he says is very bothersome and can be severe
- He does take Symbicort 80mcg at home as needed with prn albuterol MDI
- Continue weaning down systemic steroids as tolerated and once ready for discharge with DC on prednisone 40 mg daily and reduce by 10 mg every fourth day until off
- I will arrange for outpatient office follow-up with full PFTs
- Increase Symbicort upon discharge from the 80mcg dose to the 160mcg, and continue with albuterol upon discharge as needed q4-6hr with 1-2 puffs for SOB and/or wheezing
- Chest imaging shows no evidence for pneumonia and no concerning nodules seen; no acute PE seen on CTA chest from 11/11/2024
- No need to DC home with nebs as he says that it is not really helping him feel too much better currently
- Continue tamiflu and plan for 5 day course
- Change prn antitussants to scheduled, and add codeine cough syrup for use at night to help with sleep
- Trend WBC; non-toxic appearing and no pneumonia seen on chest imaging with CXR or CTA chest; no need for Abx at this time; continue to monitor for fevers
- Maintain SpO2 >90-94% with supplemental O2 as needed
- Incentive spirometer q1hr while awake
- transfuse if needed to keep Hb>7g/dL
- Replete electrolytes with K>4, Mg>2
- Maintain euglycemia with goal BG >100 and <180
- prn nebulized bronchodilators - not currently bronchospastic
- DVT ppx: HSQ
I believe he will be ready for discharge in next 1-2 days. Recommend to continue treatment in hospital for now given his continued coughing spells which can be severe and lead to SOB.
I personally reviewed his CXR and CTA chest from 11/11/2024.
Pulmonary service will continue to follow along. Outpatient office follow-up be arranged for full PFTs and symptom management.
Data:
CTA Chest 11/11/2024: No findings seen to suggest central pulmonary embolism.
Total time spent today was 56 minutes for this encounter. Time includes reviewing laboratory test/imaging results, reviewing pertinent medical records, obtaining and reviewing medical history, performing an appropriate exam, ordering medications,
tests and procedures. Time also includes documentation of this encounter, coordinating patient care and communicating with other healthcare professionals. Total time does not include separately billed tests performed on this date of service.
[2024-11-12] MEDS: TAMIFLU 75 MG PO ×2 (10:52→20:14)
--- NOTE | 2024-11-12 13:25 | PTCARENOTE ---
Patient OOb with steady gait to BR. Patient c/o headache, Tylenol given with good relief. Patient with harsh NPC, Tessalon pearls given.
--- NOTE | 2024-11-12 14:37 | CM ---
CM spoke with pt on cell due to precautuons, flu+
Pt resides alone in a 2nd floor apartment with no elevator access, 18 steps up
Indep at baseline
Has working neb at home, notes it is quit old and he has meaning to obtain a new one
Denies financial insecurities
PCP- Juan Daniel Douglas
Rx- [facility]
Pt's mother is primary contact
She has cancer and immunocompromised
He will either try to drive self home or obtain a ride from a friend or Uber
Discharge Disposition- home, anticipate no needs, may request script for new neb
[2024-11-12] MEDS: CLARITIN 10 MG PO (16:18)
[2024-11-12] MEDS: TESSALON PERLES 200 MG PO ×2 (16:28→22:44)
[2024-11-12 17:35] LABS: Glucose - Point of Care 155 mg/dl (70-99)
--- NOTE | 2024-11-12 19:16 | PTCARENOTE ---
report tubed to floor
[2024-11-12] MEDS: PEPCID 20 MG PO (22:45)
--- NOTE | 2024-11-13 00:56 | PTCARENOTE ---
Pt received from ED aaox3 able to make his needs known.Pt oriented to room & call sandoval in reach.
[2024-11-13] MEDS: ROBITUSSIN AC 10 ML PO ×3 (03:49→20:48)
[2024-11-13] MEDS: DUONEB 3 ML INH ×4 (04:07→15:57)
[2024-11-13] MEDS: SOLU-MEDROL PF 40 MG IV ×2 (06:08→18:24)
[2024-11-13] MEDS: SYMBICORT 80/4.5 MCG INHALER 2 PUFF INH ×2 (07:15→19:47)
[2024-11-13 07:35] VITALS: BP 144/96
[2024-11-13] MEDS: PROTONIX 40 MG PO (08:00)
[2024-11-13] MEDS: TAMIFLU 75 MG PO ×2 (08:00→20:48)
[2024-11-13] MEDS: HEPARIN 5000 UNITS SC ×2 (08:00→20:49)
[2024-11-13] MEDS: TESSALON PERLES 200 MG PO ×3 (08:01→22:06)
[2024-11-13] MEDS: LEXAPRO 10 MG PO (08:01)
--- NOTE | 2024-11-13 09:16 | W.PN.HOSP.TC ---
Today's Communication/Plan
-
c/w IV steroid
c/w cough medicine
Assessment / Plan
Assessment / Plan
Physical Exam
General: Well Developed, Well Nourished and No Apparent Distress
HEENT: NormoCephalic, Moist mucous membranes and Atraumatic
Respiratory: Wheezes
Cardiac: S1/S2 and Regular Rhythm; No Murmur or Rub
GI: Soft, Non Tender, Non Distended and Normal Bowel Sounds; No Organomegaly
Rectal: Deferred by Provider
Musculoskeletal: No Clubbing, No Cyanosis and No Edema
Skin: No Rash
Neuro: Nonfocal/grossly intact
# Acute bronchitis/influenza infection
# History of exercise-induced asthma
-Influenza A positive despite vaccinated
-CT PE shows no pulmonary embolism
-DuoNeb every 6 hours
-Methylprednisolone 40 mg twice daily
- Tamiflu 75 mg twice daily day #2
-Tessalon Perles TID
- Added Robitussin with codeine PRN
-Continue Symbicort
-Consult pulmonary, appreciate help
# Leukocytosis, no fever, suspect will persist due to steroid therapy
History of angioedema
-Continue famotidine
Essential hypertension
Not on HTN medicine. On Propranolol for anxiety, will add PRN oral hydralazine for now.
# GERD
-Continue famotidine
-Continue Protonix
# Anxiety/depression
Mood is pleasant.
Occasional vaper
Full code
DVT prophylaxis-heparin
Regular diet
Total time spent to see the patient, examine the patient, review data and lab results, discuss treatment plan with patient and nursing staff around 55 minutes
Anticipated Discharge: 24 - 48 hours
Subjective/Interval History
-
Date of Service: November 13, 2024
Less congested but still cough
Objective Data
-
Vital Signs:
Vital Signs
Temp Pulse Resp BP Pulse Ox
98.2 F 100 18 144/96 97
11/13/24 07:35 11/13/24 07:35 11/13/24 07:35 11/13/24 07:35 11/13/24 08:15
I&O
11/12/24 11/13/24 11/14/24
06:59 06:59 06:59
Intake Total 240 / 240 1500 / 1500
Balance 240 / 240 1500 / 1500
--- NOTE | 2024-11-13 09:40 | W.PN.PUL3 ---
Today's Communication / Plan
-
DuoNebs, Symbicort
DC home on Symbicort 160mcg with prn albuterol MDI
Continue solumedrol 40mg IV q12hr, and hopefully can start to wean to prednisone taper by tomorrow or next day
Antitussants
Up OOB as tolerated
Pain control (rib pain from coughing)
DVT ppx
Pulmonary service will continue to follow along, and outpatient office follow up will be arranged for full PFTs and symptom monitoring.
Assessment
-
Assessment: 34-year-old male who occasionally vapes with past medical history of asthma, hypertension, history of angioedema and anxiety/depression who presents with cough for 3 weeks. Patient previously on antibiotics and steroids and also on
Symbicort at home with as needed albuterol. He has been experiencing shortness of breath despite using the inhaler. Cough has been productive for the past 2 weeks. He was having bodyaches, shortness of breath and sore throat. No nausea, vomiting
or diarrhea or chest pain. He was on day 2 of his oral steroids when he presented to the ER. He vapes a few times a month and drinks alcohol socially. Initial vitals in the ER showed he was afebrile to 90 �F, pulse rate 111, breathing at 20
breaths/min, BP 134/79 and saturating 99% on room air. Initial labs showed leukocytosis to 17, Hb 14.7, serum bicarbonate level 19, and COVID antigen negative. Flu swab was positive for influenza A. CXR showed no evidence of pneumonia or acute
cardiopulmonary process, and CTA chest showed no central PE with no evidence of pneumonia, pleural effusion or lymphadenopathy. In the ER he was given Decadron 10 mg, DuoNebs, albuterol, ipratropium and Toradol. He was admitted to med/surg for
further treatment and now pulmonary consulted for additional management/recommendations.
Chronic conditions [employer]: Exercise-induced asthma, hypertension, history of angioedema, anxiety/depression
Impression:
#Acute asthmatic exacerbation in the setting of flu positive with acute cough
#Influenza A positive
#Acute bronchitis due to above
#Leukocytosis that is likely steroid-induced
#History of mild intermittent asthma that is exercise-induced
#History of angioedema
#History of hypertension
#History of GERD
#History of anxiety/depression
#History of occasional vape use
Plan:
- Patient is improving while on DuoNebs, Solu-Medrol and Symbicort 80mcg, although still with coughing spells during activity that he says is very bothersome and can be severe, albeit improving as of 11/13/2024
- He does use Symbicort 80mcg at home as needed with prn albuterol MDI
- Continue weaning down systemic steroids as tolerated and once ready for discharge with DC on prednisone 40 mg daily and reduce by 10 mg every fourth day until off
- I will arrange for outpatient office follow-up with full PFTs
- Increase Symbicort upon discharge from the 80mcg dose to the 160mcg, and continue with albuterol upon discharge as needed q4-6hr with 1-2 puffs for SOB and/or wheezing
- Chest imaging shows no evidence for pneumonia and no concerning nodules seen; no acute PE seen on CTA chest from 11/11/2024
- No need to DC home with nebs as he says that it is not really helping him feel too much better currently
- Continue tamiflu and plan for 5 day course
- Changed prn antitussants to scheduled, and added codeine cough syrup for use at night to help with sleep
- Trend WBC; non-toxic appearing and no pneumonia seen on chest imaging with CXR or CTA chest; no need for Abx at this time; continue to monitor for fevers
- Maintain SpO2 >90-94% with supplemental O2 as needed
- Incentive spirometer q1hr while awake
- transfuse if needed to keep Hb>7g/dL
- Replete electrolytes with K>4, Mg>2
- Maintain euglycemia with goal BG >100 and <180
- prn nebulized bronchodilators - not currently bronchospastic
- DVT ppx: HSQ
I believe he will be ready for discharge in next 1-2 days. Recommend to continue treatment in hospital for now given his continued coughing spells which can be severe and lead to SOB.
I personally reviewed his CXR and CTA chest from 11/11/2024.
Pulmonary service will continue to follow along. Outpatient office follow-up be arranged for full PFTs and symptom management.
Data:
CTA Chest 11/11/2024: No findings seen to suggest central pulmonary embolism.
Total time spent today was 36 minutes for this encounter. Time includes reviewing laboratory test/imaging results, reviewing pertinent medical records, obtaining and reviewing medical history, performing an appropriate exam, ordering medications,
tests and procedures. Time also includes documentation of this encounter, coordinating patient care and communicating with other healthcare professionals. Total time does not include separately billed tests performed on this date of service.
Subjective Data
-
Date of Service:
Date of Service: November 13, 2024
Chief Complaint: Pulmonary Follow Up
Subjective:
Pt seen and evaluated this AM. He is on room air breathing comfortably. SOB is better and so is his cough. Still with coughing spells, and feels SOB during activity. Has rib pain from coughing so much. No PEARL, abd pain, N/V/f/c.
Review of Systems
General: Other (negative unless mentioned above)
Objective Data
Data Reviewed
Vital Signs / I&O / Oxygen:
Vital Signs
Temp Pulse Resp BP Pulse Ox
98.2 F 96 18 144/96 95
11/13/24 07:35 11/13/24 11:23 11/13/24 11:23 11/13/24 07:35 11/13/24 11:23
Intake and Output
11/12/24 11/13/24 11/14/24
06:59 06:59 06:59
Intake Total 240 / 240 1500 / 1500
Balance 240 / 240 1500 / 1500
SaO2 95
Physical Exam
General: Respiratory Distress (negative), Comfortable, Chills (negative) and Sweats (negative)
HEENT: Normocephalic and Anicteric
Cardiovascular: S1-S2, Murmur (negative) and Peripheral Edema (negative)
Respiratory: Wheeze (negative), Crackles (negative), Rhonchi (negative) and Non-Labored Respirations
GI: Soft, Non Distended, Non Tender and Normal Bowel Sounds
Neurology: AO x 3 and Tremors (negative)
Skin: Warm, Dry, Cyanosis (negative) and Jaundice (negative)
Labs/Micro/Reports
Lab Data
11/12/24 05:28
11/12/24 05:28
Microbiology
11/11/24 22:04 Nasal Swab Influenza Types A & B (YAZMIN) - Final
Influenza A Positive, NAAT
[2024-11-13] MEDS: CLARITIN 10 MG PO (12:46)
[2024-11-13] MEDS: TYLENOL 650 MG PO (14:02)
[2024-11-13 15:12] VITALS: BP 146/90
--- NOTE | 2024-11-13 17:20 | CM ---
Spoke with pt he said he has not been sleeping well in hospital.
He said his sister will drive him home at [place].
Pt said he has Nebulizer meds at home . Nebulizer machine in older.
Advised pt he can obtained new Nebulizer at [facility].
Offered Vn he declined need.
PLAN Home no needs
[2024-11-13] MEDS: FLUSH (NSS) 1 FLUSH IV (18:25)
[2024-11-13] MEDS: DUONEB INH ×2 (19:15→19:51)
[2024-11-13] MEDS: XOPENEX 0.63 MG INHALANT SOLUTION INH (19:47)
[2024-11-13] MEDS: PEPCID 20 MG PO (22:06)
[2024-11-13 23:12] VITALS: BP 131/84
[2024-11-14] MEDS: XOPENEX 0.63 MG INHALANT SOLUTION INH ×3 (00:05→13:53)
[2024-11-14] MEDS: SOLU-MEDROL PF 40 MG IV (06:12)
[2024-11-14] MEDS: TAMIFLU 75 MG PO (08:00)
[2024-11-14] MEDS: TESSALON PERLES 200 MG PO ×2 (08:00→15:45)
[2024-11-14] MEDS: PROTONIX 40 MG PO (08:00)
[2024-11-14] MEDS: LEXAPRO 10 MG PO (08:00)
[2024-11-14] MEDS: ROBITUSSIN AC 10 ML PO (08:00)
[2024-11-14] MEDS: HEPARIN 5000 UNITS SC (08:01)
[2024-11-14] MEDS: SYMBICORT 80/4.5 MCG INHALER 2 PUFF INH (08:24)
[2024-11-14] MEDS: DUONEB INH ×2 (08:25→11:37)
[2024-11-14 08:34] VITALS: BP 140/96
--- NOTE | 2024-11-14 08:55 | W.PN.PUL3 ---
Today's Communication / Plan
-
Continue Symbicort 80mcg, Solu-Medrol 40 IV every 12hr + Xopenex while hospitalized
DC home on Symbicort 160mcg with prn albuterol MDI and if he is interested can DC on DuoNebs as well, q4-6hr prn SOB/wheezing
Send home on prednisone taper starting at 40 mg daily and reduce by 10 mg every fourth day until off
Antitussants
Up OOB as tolerated
Pain control (rib pain from coughing)
DVT ppx
Patient is ready for discharge today. I will arrange for outpatient office follow-up. No additional recommendations at this time. Pulmonary service will now sign off. Please reconsult if there are any additional questions/concerns, or if
patient's respiratory status deteriorates.
Assessment
-
Assessment: 34-year-old male who occasionally vapes with past medical history of asthma, hypertension, history of angioedema and anxiety/depression who presents with cough for 3 weeks. Patient previously on antibiotics and steroids and also on
Symbicort at home with as needed albuterol. He has been experiencing shortness of breath despite using the inhaler. Cough has been productive for the past 2 weeks. He was having bodyaches, shortness of breath and sore throat. No nausea, vomiting
or diarrhea or chest pain. He was on day 2 of his oral steroids when he presented to the ER. He vapes a few times a month and drinks alcohol socially. Initial vitals in the ER showed he was afebrile to 90 �F, pulse rate 111, breathing at 20
breaths/min, BP 134/79 and saturating 99% on room air. Initial labs showed leukocytosis to 17, Hb 14.7, serum bicarbonate level 19, and COVID antigen negative. Flu swab was positive for influenza A. CXR showed no evidence of pneumonia or acute
cardiopulmonary process, and CTA chest showed no central PE with no evidence of pneumonia, pleural effusion or lymphadenopathy. In the ER he was given Decadron 10 mg, DuoNebs, albuterol, ipratropium and Toradol. He was admitted to med/surg for
further treatment and now pulmonary consulted for additional management/recommendations.
Chronic conditions CHAIR: Exercise-induced asthma, hypertension, history of angioedema, anxiety/depression
Impression:
#Acute asthmatic exacerbation in the setting of flu positive with acute cough
#Influenza A positive
#Acute bronchitis due to above
#Leukocytosis that is likely steroid-induced
#History of mild intermittent asthma that is exercise-induced
#History of angioedema
#History of hypertension
#History of GERD
#History of anxiety/depression
#History of occasional vape use
Plan:
- Patient has markedly improved and is eager to go home
- Patient cleared to go home but raise his Symbicort dose from 80mcg to 160mcg, and advised to use as prescribed at 2 puffs twice a day, rinsing mouth after use
- Continue with albuterol prn q4-6hr with 1-2 puffs for SOB and/or wheezing
- Continue Solu-Medrol 40mg IV q12hr, and send home on prednisone 40 mg daily and reduce by 10 mg every fourth day until off
- I will arrange for outpatient office follow-up with full PFTs
- Chest imaging shows no evidence for pneumonia and no concerning nodules seen; no acute PE seen on CTA chest from 11/11/2024
-If patient is interested, can discharge home with prn DuoNebs q4-6hr SOB/wheezing
- Continue tamiflu and plan for 5 day course
- Changed prn antitussants to scheduled, and added codeine cough syrup for use at night to help with sleep
- Trend WBC; non-toxic appearing and no pneumonia seen on chest imaging with CXR or CTA chest; no need for Abx at this time; continue to monitor for fevers
- Maintain SpO2 >90-94% with supplemental O2 as needed
- Incentive spirometer q1hr while awake
- transfuse if needed to keep Hb>7g/dL
- Replete electrolytes with K>4, Mg>2
- Maintain euglycemia with goal BG >100 and <180
- prn nebulized bronchodilators - not currently bronchospastic
- DVT ppx: HSQ
Patient is ready for discharge today. I will arrange for outpatient office follow-up. No additional recommendations at this time. Pulmonary service will now sign off. Thank you for allowing us to be involved in the care of this patient. Please
reconsult if there are any additional questions/concerns, or if patient's respiratory status deteriorates.
Of note, I personally reviewed his CXR and CTA chest from 11/11/2024.
Data:
CTA Chest 11/11/2024: No findings seen to suggest central pulmonary embolism.
Total time spent today was 28 minutes for this encounter. Time includes reviewing laboratory test/imaging results, reviewing pertinent medical records, obtaining and reviewing medical history, performing an appropriate exam, ordering medications,
tests and procedures. Time also includes documentation of this encounter, coordinating patient care and communicating with other healthcare professionals. Total time does not include separately billed tests performed on this date of service.
Subjective Data
-
Date of Service:
Date of Service: November 14, 2024
Chief Complaint: Pulmonary Follow Up
Subjective:
Patient seen and evaluated today at bedside. Feels better, still with coughing spells. Eager to go home. Has some rib pain from coughing. Denies PEARL, abdominal pain, nausea, fevers or chills.
Review of Systems
General: Other (Negative unless mentioned above)
Objective Data
Data Reviewed
Vital Signs / I&O / Oxygen:
Vital Signs
Temp Pulse Resp BP Pulse Ox
98.1 F 74 20 140/96 95
11/14/24 08:34 11/14/24 08:34 11/14/24 08:34 11/14/24 08:34 11/14/24 08:34
Intake and Output
11/13/24 11/14/24 11/15/24
06:59 06:59 06:59
Intake Total 1500 / 1500 2400 / 2400
Balance 1500 / 1500 2400 / 2400
SaO2 95
Physical Exam
General: Respiratory Distress (negative), Comfortable, Chills (negative) and Sweats (negative)
HEENT: Normocephalic and Anicteric
Cardiovascular: S1-S2, Murmur (negative) and Peripheral Edema (negative)
Respiratory: Wheeze (End expiratory wheezing heard scattered in posterior lung guillaume), Crackles (negative), Rhonchi (negative) and Non-Labored Respirations
GI: Soft, Non Distended, Non Tender and Normal Bowel Sounds
Neurology: AO x 3 and Tremors (negative)
Skin: Warm, Dry, Cyanosis (negative) and Jaundice (negative)
Labs/Micro/Reports
Lab Data
11/12/24 05:28
11/12/24 05:28
Microbiology
11/11/24 22:04 Nasal Swab Influenza Types A & B (YAZMIN) - Final
Influenza A Positive, NAAT
[2024-11-14] MEDS: CLARITIN 10 MG PO (11:59)
--- NOTE | 2024-11-14 12:02 | W.PN.HOSP.TC ---
Addendum entered and electronically signed by Nikita Luevano MD 11/23/24 16:51:
Viral Sepsis POA
Original Note:
Today's Communication/Plan
-
DC today if okay from pulmonary standpoint
Assessment / Plan
Assessment / Plan
# Acute bronchitis/influenza A infection
# History of exercise-induced asthma
-CT PE shows no pulmonary embolism
-DuoNeb every 6 hours -make it prn now
-Methylprednisolone 40 mg twice daily
- cw Tamiflu 75 mg twice daily day #2
-cw Tessalon Perles TID
- cw Robitussin with codeine PRN
-Continue Symbicort
- Wean steroids per pulm
# Leukocytosis, no fever, suspect will persist due to steroid therapy
History of angioedema
-Continue famotidine
Essential hypertension
Not on HTN medicine. On Propranolol for anxiety.
BP mostly under goal
# GERD
-Continue famotidine
-Continue Protonix
# Anxiety/depression
Mood is pleasant.
Occasional vaper
Full code
DVT prophylaxis-heparin
Regular diet
DC home if ok from pulm standpoint
Anticipated Discharge: Today
Subjective/Interval History
-
Date of Service: November 14, 2024
Feels generally improved as well as with breathing. Ongoing cough but not much productive phlegm.
No fever chills.
Objective Data
-
Vital Signs:
Vital Signs
Temp Pulse Resp BP Pulse Ox
98.1 F 74 20 140/96 95
11/14/24 08:34 11/14/24 08:34 11/14/24 08:34 11/14/24 08:34 11/14/24 08:34
I&O
11/13/24 11/14/24 11/15/24
06:59 06:59 06:59
Intake Total 1500 / 1500 2400 / 2400
Balance 1500 / 1500 2400 / 2400
Review of Systems
-
Constitutional: Denies Fever or Chills
Abdomen/GI: Denies Abdominal Pain, Nausea, Vomiting or Diarrhea
Neuro: Denies Dizzy
Physical Exam
-
General: No Apparent Distress
HEENT: Moist Mucous Membranes
Respiratory: Non Labored Respirations; Negative Wheezes, Crackles or Accessory Resp Muscle Use
Cardiac: Regular Rhythm and S1/S2; Negative Tachycardic
GI: Soft
Neuro: AO x 3
Psych: Calm; Negative Confused
[2024-11-14] MEDS: PHENERGAN SYRUP 12.5 MG PO (13:49)
--- NOTE | 2024-11-14 15:22 | PN.CDI ---
CDI
- -
CDI:
Physician Documentation Request
Admit Date: 11/11/24 23:47
Dear Doctor Bassem,
Please review the following and provide your response in the progress notes.
Clinical Indicators:
Pt admitted with acute bronchitis/influenza A infection.
Selected Entries
11/11/24
17:32 11/11/24
22:09
Pulse 120 145
Resp Rate 28 22
11/12/24
01:00
Pulse 131
Resp Rate 33
Laboratory Tests
11/11/24 11/12/24
19:35 05:28
WBC 17.0 H 15.5 H
Please clarify which of the following most accurately describes the status of the patient's infection:
Viral Sepsis POA
- Systemic manifestations of infection, with 2 or more SIRS criteria which include:
- Fever >100.4 degrees F or hypothermia < 96.8 degrees F
- Leukocytosis - WBC > 12,000 or leukopenia - WBC < 4,000 or > 10% bands
- Tachycardia > 90 beats per minute
- Tachypnea - RR > 20 breaths per minute or PaCO2 , 32mmHg
Influenza A /Acute bronchitis only
Other
Use of terms such as suspected, likely, concern for, or probable (associated with a specific diagnosis that is being evaluated, monitored, or treated as if it exists) are acceptable and can be coded in the inpatient setting, when documented at the
time of discharge.
Thank you,
Soraya Abdul RN, BSN
CDI Specialist
[place] [employer]
Please use your independent medical judgment in providing your response.
[2024-11-14 15:46] VITALS: BP 154/99
--- NOTE | 2024-11-15 14:49 | W.DCSUMMARY ---
Addendum entered and electronically signed by Nikita Luevano MD 11/15/24 14:54:
Date of discharge-11/14/24
Original Note:
Discharge Summary
Discharge Data
Date of Admission: 11/11/24
Date of Discharge: 11/15/24
-
Pending Results: No
Hospital Course
Primary diagnosis:
Influenza A infection with acute bronchitis
History of exercise-induced asthma
Secondary diagnosis:
Essential hypertension
History of supraventricular.
Anxiety/depression
Hospital course:
Patient with a history of exercise-induced asthma presented with respiratory symptoms of cough, body aches, sore throat and shortness of breath and discovered to have acute influenza A infection which in turn was causing acute bronchitis. Was seen
by pulmonary who felt there was exacerbation of asthma element. He had a CT PE study which showed no evidence of PE. No evidence of obvious pneumonia. He was put on nebulizers , methylprednisolone, Tamiflu along with antitussives. He had a good
response and symptoms improved. He was not hypoxic. Once his symptoms are improved he was discharged home on steroid taper.
Consultants on board:
Pulmonary-Han Roque
Discharge Plan
-
Patient Disposition: Home (Routine Discharge)
Discharge Diagnosis/Procedures: Influenza A infection with acute bronchitis
Condition: Fair
Diet: Regular
Activity: As tolerated
Driving Restrictions: As prior to admission
Bathing Restrictions: None
Referrals:
Han Melchor MD [Active] - in two to four weeks (full PFTs on day of office visit)
Juan Daniel Douglas IV, MD [Family Provider] - in less than 1 week
Prescriptions:
New
oseltamivir 75 mg Capsule
75 mg PO BID Qty: 5 0RF
Rx Instructions:
Take for 2 1/2 more days
prednisone 10 mg tablet
10 mg PO DIRECTED Qty: 30 0RF
Rx Instructions:
Take 40mg daily starting tomorrow and taper by 10mg every 2 days
Continued
fexofenadine 180 mg Tablet
180 mg PO NOON
propranolol 10 mg Tablet
10 mg PO DAILYPRN PRN (Reason: htn rel to anxiety )
famotidine 20 mg Tablet
20 mg PO HS
escitalopram oxalate 10 mg Tablet
10 mg PO DAILY
promethazine-DM 6.25-15 mg/5 mL syrup
5 ml PO Q6HPRN PRN (Reason: cough)
benzonatate 100 mg Capsule
100 mg PO TIDPRN PRN (Reason: cough)
pantoprazole 40 mg Tablet,Delayed Release (Dr/Ec)
40 mg PO DAILY
albuterol sulfate 90 mcg/actuation Hfa Aerosol Inhaler
2 puff INHALATION R Q4HPRN PRN (Reason: sob)
budesonide-formoterol [Symbicort] 80-4.5 mcg/actuation Hfa Aerosol Inhaler
2 puff INHALATION R BID
Patient Comments:
11/11/24: patient gets this from his doctor
Discontinued
methylprednisolone 4 mg Tablets,Dose Pack
0 mg PO PER PKG DIR
Discharge Orders:
Discharge Patient (As Directed); Ordered 11/14/24
Ordered By: Nikita Luevano
Discharge Date and Time
Discharge Date/Time: 11/14/24 17:55
Print Language: [email or web address]
== END 2024-11-14 17:55 | disposition home or self-care (01) | DRG 872 ==
LOC: 4 EAST ACU 23:47
PROVIDERS: Nurse Practitioner; ADMITTING PHYSICIAN Hospitalist; ATTENDING PHYSICIAN Internal Medicine; CONSULT PHYSICIAN Internal Medicine Critical Care Medicine; EMERGENCY PHYSICIAN Emergency Medicine; FAMILY PHYSICIAN Family Medicine
DX: A41.9 Sepsis, unspecified organism (principal); J45.21 Mild intermittent asthma with (acute) exacerbation; J20.9 Acute bronchitis, unspecified; I10 Essential (primary) hypertension; K21.9 Gastro-esophageal reflux disease without esophagitis; F32.A Depression, unspecified; F41.9 Anxiety disorder, unspecified; J09.X2 Influenza due to identified novel influenza A virus with other respiratory manifestations; F17.290 Nicotine dependence, other tobacco product, uncomplicated
CPT/HCPCS: 71046; 71275; 80053; 82962; 85025; 87502; 87811; 93005; 94640; 96374; 99285; Q9967